=== PATIENT | male | born 1975 | race Caucasian/White ===

== ENCOUNTER 2023-04-02 07:57 | Outpatient (CLI) | payer OTHER, SELFPAY ==
[2023-04-02 08:38] LABS: Hematocrit 23.7 % (40-54); Hemoglobin 8.1 g/dL (13.0-16.5); Mean Corp Hgb Conc 34.2 g/dL (32-36); Mean Corpuscular Hgb 29.9 pg (27.0-32.0); Mean Corpuscular Volume 87.5 fL (80-94); Mean Platelet Vol. 9.6 fl (6.2-12.0); POSITIVE COUNT YES; POSITIVE DIFFERENTIAL YES; POSITIVE MORPHOLOGY YES; Platelet Count 63 K/mm3 (150-450); RBC Distribution Width CV 13.2 % (11.6-14.6); RBC Distribution Width SD 41.2 fl (35.1-43.9); Red Blood Count 2.71 M/mm3 (4.6-6.2)
[2023-04-02 08:43] LABS: Differential Indicated MANUAL DIFF
[2023-04-02 09:03] LABS: Basophil 1 % (0-1); Lymphocyte 5 % (19-41); Metamyelocyte 4 % (0-1); Monocyte 16 % (0-10); Myelocyte 3 % (0-0); Neutrophil-Band 1 % (0-5); Neutrophil-Segmented 67 % (47-70); Promyelocyte 3 % (0-0); Total Cells Counted 100 (MANUAL DIFF)
[2023-04-02 09:04] LABS: Absolute Neutrophil Count 10.9 X10^3/uL (2.0-7.7); Neutrophil # 10.94 X10^3/uL (2.7-7.7)
[2023-04-02 09:07] LABS: Platelet Estimate MOD DEC (ADEQ)
[2023-04-02 09:10] LABS: Polychromasia RARE
[2023-04-04 10:03] LABS: Pathologist Review Reviewed
== END 2023-04-02 07:58 | disposition home or self-care (01) ==
LOC: MEDOUTP 08:00
DX: C85.10 Unspecified B-cell lymphoma, unspecified site (principal)
CPT/HCPCS: 36591; 85025; A4216

== ENCOUNTER 2023-04-08 07:56 | Outpatient (CLI) | payer OTHER, SELFPAY ==
[2023-04-08 08:36] LABS: Hemoglobin 7.7 g/dL (13.0-16.5); Mean Corp Hgb Conc 32.1 g/dL (32-36); Mean Corpuscular Hgb 30.2 pg (27.0-32.0); Mean Corpuscular Volume 94.1 fL (80-94); Mean Platelet Vol. 9.9 fl (6.2-12.0); POSITIVE COUNT YES; POSITIVE DIFFERENTIAL YES; POSITIVE MORPHOLOGY YES; Platelet Count 159 K/mm3 (150-450); RBC Distribution Width CV 17.2 % (11.6-14.6); RBC Distribution Width SD 43.5 fl (35.1-43.9); Red Blood Count 2.55 M/mm3 (4.6-6.2); White Blood Count 10.2 K/mm3 (4.4-11.0)
[2023-04-08 08:38] LABS: Differential Indicated MANUAL DIFF
[2023-04-08 09:07] LABS: Lymphocyte 8 % (19-41); Metamyelocyte 4 % (0-1); Monocyte 19 % (0-10); Myelocyte 1 % (0-0); Neutrophil-Band 1 % (0-5); Neutrophil-Segmented 67 % (47-70); Nucleated Red Bld Cells,Manual 1 % (0-5); Total Cells Counted 100 (MANUAL DIFF)
[2023-04-08 09:09] LABS: Absolute Neutrophil Count 7.5 X10^3/uL (2.0-7.7); Neutrophil # 7.47 X10^3/uL (2.7-7.7)
[2023-04-08 09:10] LABS: Absolute Lymphocyte Count 0.82 X10^3/uL (0.83-4.51); Lymphocyte # 0.82 X10^3/ul (0.83-4.51); Platelet Estimate ADEQUATE (ADEQ)
[2023-04-08 09:11] LABS: Anisocytosis 3+
[2023-04-08 09:12] LABS: Macrocytosis 1+; Microcytosis 1+; Polychromasia 1+
[2023-04-09 12:37] LABS: Pathologist Review Reviewed
== END 2023-04-08 07:57 | disposition home or self-care (01) ==
LOC: MEDOUTP 07:56
PROVIDERS: Referring Provider Nurse Practitioner; Visit Provider Nurse Practitioner
DX: C85.10 Unspecified B-cell lymphoma, unspecified site (principal)
CPT/HCPCS: 36591; 85025; A4216; J0153

== ENCOUNTER 2023-04-11 07:33 | Outpatient (CLI) | payer OTHER, SELFPAY ==
[2023-04-11 08:06] LABS: Absolute Lymphocyte Count 0.54 X10^3/uL (0.83-4.51); Absolute Neutrophil Count 7.8 X10^3/uL (2.0-7.7); Basophil# 0.06 X10^3/uL; Basophil% 0.5 % (0-1); Eosinophil# 0.02 X10^3/uL; Eosinophils% 0.2 % (0-5); Hemoglobin 8.3 g/dL (13.0-16.5); Lymphocyte # 0.54 X10^3/ul (0.83-4.51); Lymphocyte % 4.8 % (19-41); Mean Corp Hgb Conc 31.9 g/dL (32-36); Mean Platelet Vol. 9.5 fl (6.2-12.0); Monocyte% 19.7 % (0-10); NRBC Flagged by Analyzer 0.4 % (0-5); Neutrophil # 7.83 X10^3/uL (2.7-7.7); Neutrophil % 70.4 % (47-70); POSITIVE DIFFERENTIAL YES; POSITIVE MORPHOLOGY YES; Platelet Count 164 K/mm3 (150-450); RBC Distribution Width CV 22.1 % (11.6-14.6); RBC Distribution Width SD 45.3 fl (35.1-43.9); Red Blood Count 2.68 M/mm3 (4.6-6.2); White Blood Count 11.1 K/mm3 (4.4-11.0)
[2023-04-11 08:11] LABS: Differential Indicated SCAN CRITERIA MET
[2023-04-11 08:47] LABS: Anisocytosis 1+
[2023-04-11 14:40] LABS: ALB/GLOB Ratio 1.3 RATIO (0.9-2.4); AST(SGOT) 25 U/L (15-37); Alanine Aminotransfer ALT/SGPT 46 U/L (16-61); Albumin, Serum 3.2 g/dL (3.2-5.0); Alkaline Phosphatase 101 U/L (45-117); Anion Gap 6 (5-15); BUN 17 mg/dL (7-18); Calcium,Total 8.8 mg/dL (8.5-10.1); Chloride 108 mmol/L (98-107); Creatinine, Serum 1.06 mg/dL (0.70-1.30); EST Glomerular Filtration Rate 79 mL/min (>60); Est Glom Filt Rate - Afr Amer 95 mL/min (>60); GGTP 108 U/L (15-85); Globulin 2.5 g/dL (2.2-4.2); Glucose 121 mg/dL (74-106); LDH 263 U/L (87-241); Potassium 3.7 mmol/L (3.5-5.1); Protein, Total 5.7 g/dL (6.4-8.2); Sodium Level 141 mmol/L (136-145)
[2023-04-15 13:50] LABS: Pathologist Review Reviewed
== END 2023-04-11 07:34 | disposition home or self-care (01) ==
LOC: MEDOUTP 07:33
PROVIDERS: Referring Provider Nurse Practitioner; Visit Provider Nurse Practitioner
DX: C85.10 Unspecified B-cell lymphoma, unspecified site (principal)
CPT/HCPCS: 36591; 80053; 82977; 83615; 85025; A4216